=== PATIENT | female | born 2000 | race Two or more races ===

== ENCOUNTER 2023-08-22 13:54 | Emergency (ER) | payer OTHER ==
[~2023-08-22] VITALS: Ht 162.6 cm; Wt 90.7 kg
[2023-08-22 15:28] LABS: HEMATOCRIT 37.7 % (36.0-45.00); MEAN CELL VOLUME 83.9 fL (80.00-100.00); MEAN CORPUSCULAR HEMOGLOBIN 28.8 pg (27.00-32.0); MEAN CORPUSCULAR HGB CONC 34.4 g/dl (32.0-36.0); PLATELET COUNT 342 K/uL (150-450); RED CELL DISTRIBUTION WIDTH 14.1 % (11.5-14.5)
== END 2023-08-22 16:13 | disposition home or self-care (01) ==
LOC: ER 13:54
PROVIDERS: General Practice
DX: O20.0 Threatened abortion (principal)